=== PATIENT | female | born 1985 | race Two or more races ===

== ENCOUNTER 2019-11-03 22:23 | Day surgery (SDC) | payer MEDICAID ==
[~2019-11-03] VITALS: Ht 160 cm; Wt 59.0 kg
--- NOTE | 2019-11-03 22:40 | Emergency Room Report ---
History of Present Illness Present Illness HPI 34-year-old female presents for feelings of dizziness and possible miscarriage. Patient states that she started having vaginal spotting 4 days ago after having "rough sex". Today she started having heavy menstrual bleeding. She was passing large clots but denied passing any tissue. She has a history of anemia. She reports being generally weak and feeling dizzy. She is approximately G7, P6. She has a history of methamphetamine abuse with last use approximately 3 days ago.. Patient has required blood transfusions in the past for anemia. Allergies: Coded Allergies: No Known Allergies (Unverified , 11/03/19) Patient History Reviewed Nursing Documentation: PMH: Agreed; PSxH: Agreed Review of Systems All Other Systems: negative except mentioned in HPI Physical Exam Sp02 EP Interpretation: reviewed, normal General Appearance: mild distress, Stupor - Pale-appearing Head: normocephalic, atraumatic Eyes: bilateral eye PERRL, bilateral eye EOMI ENT: hearing grossly normal, moist mucus membranes Neck: full range of motion, supple Respiratory: lungs clear, normal breath sounds, no rhonchi, no respiratory distress, no retraction, no wheezing Cardiovascular #1: normal peripheral pulses, no murmur, tachycardia Gastrointestinal: non tender, soft, non-distended, no guarding Genitourinary: other - Large clots and blood noted in the vaginal vault, suctioned approximately 400 cc of blood,'s open, endocervical contents noted, Neurologic: alert, oriented x3, no focal defects Skin: pallor Procedures Critical Care Time Critical Care Time Critical care is been on the patient due to presentation with anemia, acute hemorrhage requiring my acute intervention. Critical care time is 1 hour and excludes procedures Additional Procedure Procedure Narrative Pelvic exam Verbal consent obtained, indication was retained products of conception, patient was placed in supine position, using a speculum vaginal vault and cervix were visualized. There were multiple blood clots in the vaginal vault that were removed and a large amount of blood suctioned from the vaginal vault approximately 400 cc, there was noted products of conception within the endocervical canal I did attempt removal with ring forceps however this was unsuccessful. Patient tolerated procedure well, no complications Medical Decision Making Diagnostic Impression: Primary Impression: Incomplete Additional Impressions: Symptomatic anemia Retained products of conception ER Course MDM: Patient presented with vaginal bleeding. She complained of dizziness and generalized weakness. She was a G7, P6 34-year-old female. My differential included but not limited to incomplete , hemorrhagic shock, ectopic , symptomatic anemia, did consider endometritis and septic Clinical course-patient placed on a gurney on arrival, IV established. Patient appeared pale and hypotensive on arrival so I decided to give emergent transfusion. She did appear to be in hemorrhagic shock. Blood pressure initially was low. IV fluids and blood transfusion started. Laboratory studies were sent. Initial hemoglobin was 10.6. I did initially order 2 units of blood but after return hemoglobin of 10.6 I only gave 1 unit. Ultrasound demonstrated a heterogeneous uterus with evidence of retained products of conception. I did do a pelvic exam which showed evidence of endocervical products of conception which I did attempt removal however was unsuccessful. Blood was suctioned from the vaginal vault. I spoke with Dr. Charles, PLUGG[employer] MAN on- call. We discussed observation to see if patient would spontaneously pass her products of conception versus OR. We initially decided to observe patient over the next few hours in the ER will repeat hemoglobin and see if patient spontaneously passed her products. After 3 to 4 hours of observation patient did become hypotensive, repeat hemoglobin was sent, and I did decide to give the second unit of blood. Additional IV fluids were given. White blood cell count was elevated so I did give IV antibiotics. Patient was still having vaginal bleeding so I did page Dr. Lawler again as I felt at this time patient will require D&C in order to control hemorrhage. Repeat hemoglobin was 7.7 which did indicate ongoing hemorrhage. Labs - Laboratory Tests Test 11/03/19 22:40 11/04/19 04:00 White Blood Count 20.2 K/UL (4.8-10.8) H 23.5 K/UL (4.8-10.8) *H Red Blood Count 4.37 M/UL (4.20-5.40) 3.02 M/UL (4.20-5.40) L Hemoglobin 10.6 G/DL (12.0-16.0) L 7.7 G/DL (12.0-16.0) L Hematocrit 31.5 % (37.0-47.0) L 23.3 % (37.0-47.0) L Mean Corpuscular Volume 72 FL (80-99) L 77 FL (80-99) L Mean Corpuscular Hemoglobin 24.3 PG (27.0-31.0) L 25.4 PG (27.0-31.0) L Mean Corpuscular Hemoglobin Concent 33.8 G/DL (32.0-36.0) 33.0 G/DL (32.0-36.0) Red Cell Distribution Width 14.8 % (11.6-14.8) 15.5 % (11.6-14.8) H Platelet Count 316 K/UL (150-450) 253 K/UL (150-450) Mean Platelet Volume 6.1 FL (6.5-10.1) L 5.9 FL (6.5-10.1) L Neutrophils (%) (Auto) % (45.0-75.0) % (45.0-75.0) Lymphocytes (%) (Auto) % (20.0-45.0) % (20.0-45.0) Monocytes (%) (Auto) % (1.0-10.0) % (1.0-10.0) Eosinophils (%) (Auto) % (0.0-3.0) % (0.0-3.0) Basophils (%) (Auto) % (0.0-2.0) % (0.0-2.0) Differential Total Cells Counted 100 100 Neutrophils % (Manual) 73 % (45-75) 86 % (45-75) H Lymphocytes % (Manual) 22 % (20-45) 11 % (20-45) L Monocytes % (Manual) 4 % (1-10) 3 % (1-10) Eosinophils % (Manual) 1 % (0-3) 0 % (0-3) Basophils % (Manual) 0 % (0-2) 0 % (0-2) Band Neutrophils 0 % (0-8) 0 % (0-8) Platelet Estimate Adequate Adequate Platelet Morphology Normal Normal Sodium Level 140 MMOL/L (136-145) Potassium Level 3.3 MMOL/L (3.5-5.1) L Chloride Level 103 MMOL/L (98-107) Carbon Dioxide Level 24 MMOL/L (21-32) Anion Gap 13 mmol/L (5-15) Blood Urea Nitrogen 9 mg/dL (7-18) Creatinine 0.8 MG/DL (0.55-1.30) Estimated Glomerular Filtration Rate > 60 mL/min (>60) Glucose Level 132 MG/DL (74-106) H Calcium Level 8.6 MG/DL (8.5-10.1) Total Bilirubin 0.3 MG/DL (0.2-1.0) Aspartate Amino Transferase (AST) 16 U/L (15-37) Alanine Aminotransferase (ALT) 6 U/L (12-78) L Alkaline Phosphatase 67 U/L (46-116) Total Protein 6.8 G/DL (6.4-8.2) Albumin 3.0 G/DL (3.4-5.0) L Globulin 3.8 g/dL Albumin/Globulin Ratio 0.8 (1.0-2.7) L Lipase 164 U/L (73-393) Human Chorionic Gonadotropin, Quant 178 mIU/mL (1-6) H On reevaluation: On reevaluation at 5 AM patient was alert, oriented, improved skin color but still with a borderline blood pressure. Plan-patient will require admission to OR for DC and observation Rhythm Strip Diag. Results EP Interpretation: yes Rate: 75 Rhythm: NSR, no PVC's, no ectopy Disposition: ADMITTED INPATIENT Condition: Critical Loco Liang M.D. Nov 03, 2019 22:40
--- NOTE | 2019-11-03 22:45 | NUR ---
ED Nurse Note: pt BIBA from a hotel for vaginal bleeding. EMS report they witnessed pt lose ~1 Liter of blood and when she was being transferred onto [facility], they witnessed her lose consciousness for a few seconds. pt reports that she first noticed bleeding 4 days ago when she was having "rough intercourse" and has been bleeding since then but it has gotten worse with today being the most bleeding. pt reports that she is 3 months and believes she is having a miscarriage. she has 6 children, this being her 7th. pt is c/o abs px, presents pale with a BP of 78/50.
[2019-11-03 22:50] VITALS: BP 156/100
--- NOTE | 2019-11-03 22:55 | NUR ---
ED Nurse Note: pt placed in trendlenberg position, IV established in L AC 20 g. blood work sent to lab, Dr. Liang signed consent for emergency blood transfucion Addendum: 11/03/19 at 2348 by QLE emergency blood transfusion
[2019-11-03 23:09] LABS: HEMATOCRIT 31.5 % (37.0-47.0); HEMOGLOBIN 10.6 G/DL (12.0-16.0); MEAN CORPUSCULAR VOLUME 72 FL (80-99); PLATELET COUNT 316 K/UL (150-450); RED BLOOD COUNT 4.37 M/UL (4.20-5.40); RED CELL DISTRIBUTION WIDTH 14.8 % (11.6-14.8); WHITE BLOOD COUNT 20.2 K/UL (4.8-10.8)
--- NOTE | 2019-11-03 23:15 | NUR ---
ED Nurse Note: emergency blood transfusion began, US at pt bedside
[2019-11-03 23:22] LABS: ANION GAP 13 mmol/L (5-15); BLOOD UREA NITROGEN 9 mg/dL (7-18); CALCIUM 8.6 MG/DL (8.5-10.1); CARBON DIOXIDE 24 MMOL/L (21-32); CHLORIDE 103 MMOL/L (98-107); CREATININE 0.8 MG/DL (0.55-1.30); POTASSIUM 3.3 MMOL/L (3.5-5.1); SODIUM 140 MMOL/L (136-145)
[2019-11-03 23:26] LABS: ALANINE AMINOTRANSFERASE 6 U/L (12-78); ALBUMIN/GLOBULIN RATIO 0.8 (1.0-2.7); ALKALINE PHOSPHATASE 67 U/L (46-116); ASPARTATE AMINO TRANSFERASE 16 U/L (15-37); BILIRUBIN,TOTAL 0.3 MG/DL (0.2-1.0)
[2019-11-04] VITALS (19 sets, daily range): BP systolic 76–135; BP diastolic 52–89
--- NOTE | 2019-11-04 00:14 | Diagnostic Imaging Report ---
EXAM: US First Trimester , Transabdominal CLINICAL HISTORY: PAIN TECHNIQUE: Real-time transabdominal obstetrical ultrasound of the maternal pelvis and a first trimester with image documentation. COMPARISON: No relevant prior studies available. FINDINGS: Gestation: No IUP identified. Placenta/amniotic fluid: Cannot be adequately evaluated due to the early gestational age. Uterus/cervix: Thickened heterogeneous endometrium with flow, which may be retained products. No myometrial mass. Ovaries: Unremarkable. No mass. Free fluid: No free fluid. IMPRESSION: 1. No IUP identified. 2. Thickened heterogeneous endometrium with flow, which may be retained products.
--- NOTE | 2019-11-04 00:46 | NUR ---
ED Nurse Note: ERMD gave verbal order to hold second unit of blood. first unit finished
--- NOTE | 2019-11-04 00:50 | NUR ---
ED Nurse Note: Dr. Liang at bedside to perform pelvic exam, ~400 cc of blood and clots removed and suctioned
--- NOTE | 2019-11-04 03:55 | NUR ---
ED Nurse Note: second unit of blood started on pt. second IV line established in R AC 20 gauge with 2L NS bolus running per ERMD verbal order
[2019-11-04 04:13] LABS: HEMATOCRIT 23.3 % (37.0-47.0); HEMOGLOBIN 7.7 G/DL (12.0-16.0); MEAN CORPUSCULAR VOLUME 77 FL (80-99); PLATELET COUNT 253 K/UL (150-450); RED BLOOD COUNT 3.02 M/UL (4.20-5.40); RED CELL DISTRIBUTION WIDTH 15.5 % (11.6-14.8)
[2019-11-04] MEDS ORDERED: Piperacillin/Tazobactam 3.375 GM in NS 110 ML IVPB ONE (04:15)
[2019-11-04 04:16] LABS: WHITE BLOOD COUNT 23.5 K/UL (4.8-10.8)
--- NOTE | 2019-11-04 04:46 | NUR ---
ED Nurse Note: Dr. Liang at pt bedside, pt asking questions and speaking with Dr about plan of care. pt understands, is able to make needs known, pt is tachy and hypotensive. has IV fluids running and blood transfusing. tolerating well
[2019-11-04 05:20] LABS: INR 1.2 (0.9-1.1)
--- NOTE | 2019-11-04 06:05 | NUR ---
ED Nurse Note: pt states she last ate a [employer] bar at around 1800 yesterday
--- NOTE | 2019-11-04 06:37 | NUR ---
ED Nurse Note: report given to OR nurseMaximino
[2019-11-04] MEDS ORDERED: Midazolam 2mg/2ml Inj ONE (06:51)
[2019-11-04] MEDS ORDERED: fentaNYL 100 mcg/2 mL IV ONE (06:51)
[2019-11-04] MEDS ORDERED: Lidocaine 1% MPF 10mg/ml 5ml ONE (06:57)
[2019-11-04] MEDS ORDERED: NS Irrig 1000ml ONE (07:00)
[2019-11-04] MEDS ORDERED: LR 1000ml ONE (07:00)
[2019-11-04] MEDS ORDERED: Sterile Water Irrig 1000ml IRRIG ONE (07:00)
[2019-11-04] MEDS ORDERED: cefOXitin 1gm Inj ONE (07:01)
--- NOTE | 2019-11-04 07:02 | NUR ---
ED Nurse Note: pt taken to OR by Danish johnson. all belongings and paperwork were taken with pt
[2019-11-04] MEDS ORDERED: Oxytocin 10 units/vial ONE ×2 (07:22→07:49)
[2019-11-04] MEDS ORDERED: Methylergonovine 0.2mg/ml Inj IM ONE (07:22)
--- NOTE | 2019-11-04 08:27 | Anethesia Preoperative Eval ---
Anesthesia Pre-op PMH/ROS General Date of Evaluation: Nov 04, 2019 Time of Evaluation: 07:05 Anesthesiologist: Inderjit ASA Score: ASA 2 Mallampati Score Class I : Soft palate, uvula, fauces, pillars visible Class II: Soft palate, uvula, fauces visible Class III: Soft palate, base of uvula visible Class IV: Only hard plate visible Mallampati Classification: Class II Surgeon: Araceli Diagnosis: Suction D&C Surgical Procedure: Incomplete Anesthesia History: none Social History: current smoker, drug use - crystal meth Family History: no anesthesia problems Allergies: Coded Allergies: No Known Allergies (Unverified , 11/03/19) Medications: see eMAR Patient NPO?: Yes Past Medical History Cardiovascular: Denies: HTN, CAD, MA, valve dz, arrhythmia, other Pulmonary: Denies: asthma, COPD, NEDA, other Gastrointestinal/Genitourinary: Reports: GERD; Denies: CRI, ESRD, other Neurologic/Psychiatric: Reports: depression/anxiety; Denies: dementia, CVA, TIA, other Endocrine: Denies: DM, hypothyroidism, steroids, other HEENT: Denies: cataract (L), cataract (R), glaucoma, [place] (L), [place] (R), other Hematology/Immune: Reports: anemia - severe poswthemorrhagic; Denies: DVT, bleeding disorder, other Musculoskeletal/Integumentary: Denies: OA, RA, DJD, DDD, edema, other PMH Narrative: as above PSxH Narrative: see H&P Anesthesia Pre-op Phys. Exam Physician Exam Last Vital Signs Date Time Temp Pulse Resp B/P (MAP) Pulse Ox O2 Delivery O2 Flow Rate FiO2 11/04/19 05:23 89 97/66 11/04/19 04:44 98.2 17 99 Room Air Constitutional: other - obtundet arousable Neurologic: other - unable to obtanwe Cardiovascular: other - tachicardic hypotensive Respiratory: CTA Gastrointestinal: S/NT/ND Airway Exam Mallampati Score: Class II MO: limited Neck: stiff ROM: limited Teeth: intact Dentures: no upper, no lower Anesthesia Pre-op A/P Labs Hematology Test 11/03/19 22:40 11/04/19 04:00 White Blood Count 20.2 K/UL (4.8-10.8) H 23.5 K/UL (4.8-10.8) *H Red Blood Count 4.37 M/UL (4.20-5.40) 3.02 M/UL (4.20-5.40) L Hemoglobin 10.6 G/DL (12.0-16.0) L 7.7 G/DL (12.0-16.0) L Hematocrit 31.5 % (37.0-47.0) L 23.3 % (37.0-47.0) L Mean Corpuscular Volume 72 FL (80-99) L 77 FL (80-99) L Mean Corpuscular Hemoglobin 24.3 PG (27.0-31.0) L 25.4 PG (27.0-31.0) L Mean Corpuscular Hemoglobin Concent 33.8 G/DL (32.0-36.0) 33.0 G/DL (32.0-36.0) Red Cell Distribution Width 14.8 % (11.6-14.8) 15.5 % (11.6-14.8) H Platelet Count 316 K/UL (150-450) 253 K/UL (150-450) Mean Platelet Volume 6.1 FL (6.5-10.1) L 5.9 FL (6.5-10.1) L Neutrophils (%) (Auto) % (45.0-75.0) % (45.0-75.0) Lymphocytes (%) (Auto) % (20.0-45.0) % (20.0-45.0) Monocytes (%) (Auto) % (1.0-10.0) % (1.0-10.0) Eosinophils (%) (Auto) % (0.0-3.0) % (0.0-3.0) Basophils (%) (Auto) % (0.0-2.0) % (0.0-2.0) Differential Total Cells Counted 100 100 Neutrophils % (Manual) 73 % (45-75) 86 % (45-75) H Lymphocytes % (Manual) 22 % (20-45) 11 % (20-45) L Monocytes % (Manual) 4 % (1-10) 3 % (1-10) Eosinophils % (Manual) 1 % (0-3) 0 % (0-3) Basophils % (Manual) 0 % (0-2) 0 % (0-2) Band Neutrophils 0 % (0-8) 0 % (0-8) Platelet Estimate Adequate Adequate Platelet Morphology Normal Normal Coagulation Test 11/04/19 05:15 Prothrombin Time 13.1 SEC (9.30-11.50) H Prothromb Time International Ratio 1.2 (0.9-1.1) H Activated Partial Thromboplast Time 27 SEC (23-33) Chemistry Test 11/03/19 22:40 Sodium Level 140 MMOL/L (136-145) Potassium Level 3.3 MMOL/L (3.5-5.1) L Chloride Level 103 MMOL/L (98-107) Carbon Dioxide Level 24 MMOL/L (21-32) Anion Gap 13 mmol/L (5-15) Blood Urea Nitrogen 9 mg/dL (7-18) Creatinine 0.8 MG/DL (0.55-1.30) Estimat Glomerular Filtration Rate > 60 mL/min (>60) Glucose Level 132 MG/DL (74-106) H Calcium Level 8.6 MG/DL (8.5-10.1) Total Bilirubin 0.3 MG/DL (0.2-1.0) Aspartate Amino Transf (AST/SGOT) 16 U/L (15-37) Alanine Aminotransferase (ALT/SGPT) 6 U/L (12-78) L Alkaline Phosphatase 67 U/L (46-116) Total Protein 6.8 G/DL (6.4-8.2) Albumin 3.0 G/DL (3.4-5.0) L Globulin 3.8 g/dL Albumin/Globulin Ratio 0.8 (1.0-2.7) L Lipase 164 U/L (73-393) Human Chorionic Gonadotropin, Quant 178 mIU/mL (1-6) H Risk Assessment & Plan Assessment: ASA 2 E Plan: GA with LMA Status Change Before Surgery: No Pre-Antibiotics Drug: cefoxitin 1gr, Given Within 1 Hr of Incision: Yes Time Given: 07:20 William Jansen MD Nov 04, 2019 08:27
[2019-11-04] MEDS ORDERED: Ketorolac 30mg Inj IV PRN (08:30)
[2019-11-04] MEDS ORDERED: Metoclopramide 10mg/2ml Inj IVP PRN (08:30)
[2019-11-04] MEDS ORDERED: DiphenhydrAMINE 50mg/ml Inj IVP PRN (08:30)
[2019-11-04] MEDS ORDERED: Meperidine 25mg/0.5ml Inj (FOR RIGORS ONLY) IV PRN (08:30)
--- NOTE | 2019-11-04 09:29 | Immediate Post-Op Evaluation ---
Immediate Post-Op Evalulation Immediate Post-Op Evalulation Procedure: Suction D&C Date of Evaluation: Nov 04, 2019 Time of Evaluation: 08:18 IV Fluids: 800 Blood Products: Hespan 500 Estimated Blood Loss: 1000 Urinary Output: 100 Blood Pressure Systolic: 93 Blood Pressure Diastolic: 56 Pulse Rate: 102 Respiratory Rate: 20 O2 Sat by Pulse Oximetry: 99 Temperature (Fahrenheit): 97.6 Pain Score (1-10): 2 Nausea: No Vomiting: No Complications none Patient Status: reacts, patent, none Hydration Status: adequate William Jansen MD Nov 04, 2019 09:29
[2019-11-04 09:56] LABS: HEMATOCRIT 20.6 % (37.0-47.0); HEMOGLOBIN 7.5 G/DL (12.0-16.0); MEAN CORPUSCULAR VOLUME 81 FL (80-99); PLATELET COUNT 107 K/UL (150-450); RED BLOOD COUNT 2.56 M/UL (4.20-5.40); RED CELL DISTRIBUTION WIDTH 14.3 % (11.6-14.8); WHITE BLOOD COUNT 13.2 K/UL (4.8-10.8)
--- NOTE | 2019-11-04 10:10 | NUR ---
NURSE NOTES: Pt arrived to the unit s/p surgery in stable condition, received report form Payal CHAUDHRY, , pt sleeping with no s/s of distress on O2 NC 3 L, Vitals BP 97.8 P 80 RR 18 BP 115/77 O2sta 100 . bed in low locked position side rails up X2, call light with in reach, will continue to monitor pt
[2019-11-04] MEDS ORDERED: D5 1/2NS 1000ml IV ONE (10:18)
[2019-11-04] MEDS ORDERED: D5 1/2NS 1,000 ML IV SCH (10:27)
--- NOTE | 2019-11-04 11:45 | Operative Note - Dictated ---
DATE OF OPERATION: 11/04/2019 PREOPERATIVE DIAGNOSIS: Incomplete . POSTOPERATIVE DIAGNOSES: 1. Incomplete . 2. Acute blood loss anemia. PROCEDURE PERFORMED: Dilatation and curettage and evacuation of products of conception. SURGEON: Ran Charles M.D. [employer] SALES CONSULTANT: None. ANESTHESIA: General LMA. ANESTHESIOLOGIST: William Jansen M.D. PROCEDURE IN DETAIL: After all the appropriate consents were signed, the patient was brought to the operating room, placed on table in supine position. General LMA anesthesia was induced without complication. The patient was then placed in a dorsal lithotomy position. Perineum, vagina and abdomen were prepped and draped in the usual fashion for the procedure. Vaginal vault contained a number of clots. These were evacuated as part of the prep. The patient's bladder was emptied with an in-and-out red rubber catheter. At this time, a speculum was placed and the cervix was visualized. The cervical os contained a large amount of the protruding products of conception. These were grasped with ring forceps and evacuated using traction-countertraction technique. Once the products of conception were evacuated, the cervix was grasped with a ring forceps, and curette was used to suction the endometrial lining and some additional uterine contents were delivered. At this time, sharp curettage was performed and continued until no additional specimens was found. The procedure then continued with additional vacuum curettage with no additional products of conception were delivered. The patient's uterus was examined and found to be completely hemostatic. Uterus was firm and bleeding was seen from the cervical os. Instruments were removed and the patient was then placed in the supine position. She was brought to the recovery room after was awakened from anesthesia, and she tolerated the procedure very well. Ran Charles M.D. DR: FELICIA JOB#: [id number] CC:
[2019-11-04] MEDS: Ketorolac 30mg Inj IV SCH ×2 (12:00→18:00)
[2019-11-04] MEDS ORDERED: Tylenol #3 tab (300mg/30mg) ORAL PRN (12:00)
--- NOTE | 2019-11-04 15:18 | NUR ---
Social Work This SW received a consult due to patient recently had a miscarriage, emotional support needed for patient. This Sw met with patient who was difficult to arouse, not able to stay awake (appears sedated from medication). Patient admitted to this SW that she had a recent relapse from using Meth prior to this admission, while also admitting that she knew that she was . Drug screen not completed at this time. Patient admits she has six children, all living with other family and are not in her custody. Patient was able to recall the following information regarding her children: Daughter (age 14): Daniella Davidson (lives with fathers parents) Daughter (age 13): Celia Davidson (lives with fathers parents) Son (age unknown): Keke Daughter (age 3): patient explains daughter was removed from her custody. Patient was unable to remain awake to provide this SW with all the information (patient has two other children, names and locations unknown). SW to follow when Patient is more alert. set up mechanic crown assembly machine informed. This SW contacted DCFS intake, Shell Serra who confirmed patient does not have custody of children and will not require DCFS follow up at this time. This SW provided Drug/Substance Abuse programs for patient to follow up with upon discharge. Nursing informed.
--- NOTE | 2019-11-04 19:20 | NUR ---
HAND-OFF: Report given to Ivelisse, pt stable, Dc plan endoresed to nurse .
--- NOTE | 2019-11-04 20:28 | NUR ---
NURSE NOTES: Patient left unit without incident via wheelchair. Friend "Frandy" picked her up via private vehicle. 2 IV access removed, belongings accounted for. Hospital bracelet removed. VSS.
[2019-11-05 09:03] VITALS: BP 124/68
--- NOTE | 2019-11-05 09:03 | 48 Hour Post Anesthesia Eval ---
Post Anesthesia Evaluation Procedure: Suction D&C Date of Evaluation: Nov 04, 2019 Time of Evaluation: 14:20 Blood Pressure Systolic: 124 0: 68 Pulse Rate: 78 Respiratory Rate: 22 Temperature (Fahrenheit): 97.6 O2 Sat by Pulse Oximetry: 98 Airway: patent Nausea: No Vomiting: No Pain Intensity: 2 Hydration Status: adequate Cardiopulmonary Status: stable Mental Status/LOC: patient returned to baseline Follow-up Care/Observations: n/a Post-Anesthesia Complications: none Follow-up care needed: N/A William Jansen MD Nov 05, 2019 09:03
== END 2019-11-04 20:28 | disposition home or self-care (01) ==
LOC: EDBD 22:23 → EMR 22:45 → EDBEDREQ 11-04 06:43 → SDS 11-04 06:58 → 3E 11-04 10:17
DX: O03.4 Incomplete spontaneous abortion without complication (principal); D50.0 Iron deficiency anemia secondary to blood loss (chronic); I95.9 Hypotension, unspecified; K21.9 Gastro-esophageal reflux disease without esophagitis; R00.0 Tachycardia, unspecified
CPT/HCPCS: 36415; 59812; 76801; 80053; 83690; 84702; 85007; 85025; 85610; 85730; 86850; 86900; 86901; 86920; 87040; 94003; 96361; 96365; J0694; J1885; J2250; J2405; J2543; J2590; J2704; J3010; J7030; J7120; P9016; Z7502; Z7512; Z7514; 94150; 99284; G0378